=== PATIENT | male | born 1960 ===

== ENCOUNTER 2019-02-01 15:10 | Emergency (ER) | payer OTHER ==
[~2019-02-01] VITALS: Ht 167.6 cm; Wt 95.5 kg
[2019-02-01 15:23] VITALS: BP 121/88
== END 2019-02-01 16:54 | disposition home or self-care (01) ==
LOC: ER 15:11
DX: Z02.89 Encounter for other administrative examinations (principal); F15.10 Other stimulant abuse, uncomplicated; F17.200 Nicotine dependence, unspecified, uncomplicated; Z59.0 Homelessness
CPT/HCPCS: 99281